=== PATIENT | female | born 1945 | race Caucasian/White ===

== ENCOUNTER → 2019-10-13 | Outpatient (CLI) | payer BC, OTHER ==
--- NOTE | 2019-10-14 10:25 | MRI ---
EXAM DESCRIPTION: Lumbar Spine w/o Contrast : Magnetic Resonance Imaging. CLINICAL HISTORY: INTERVERTEBRAL DISC DISORDERS RADICULOPATHY COMPARISON: MRI scan of the thoracic spine without contrast on the same visit. TECHNIQUE: Multiplanar, multiple standard sequences, non contrast MRI, lumbar spine. FINDINGS: L5-S1: The disc is well visualized on axial T2 series 501, image 3. Disc is desiccated with disc space maintained. Posterior midline bulge 4 mm. Left posterior hyperintense T2 weighted annular fissure abutting the foramen. Posterior flavum ligament thickening. Bilaterally shortened pedicles. AP canal diameter 9 mm. Mild right foraminal narrowing and mild to moderate left foraminal narrowing. L4-L5: Disc desiccation with disc space maintained. Tiny posterior broad-based bulge. Minimal hypertrophic facet arthrosis and posterior ligament thickening as well as narrowed transverse diameter of the bony canal and shortened pedicles. AP canal diameter 9 mm. Mild to moderate left foraminal narrowing and moderate right foraminal narrowing. L3-L4: Disc space maintained with normal signal in the disc. Minimal anterior bulging. Bilaterally shortened pedicles and bilateral narrowed transverse diameter of the canal. Hypertrophic bilateral facet arthrosis with posterior ligament thickening. AP canal diameter 10 mm. Inhomogeneous marrow signal with circumscribed hyperintense T1 and T2 hemangioma in the right L3 lamina. L2-L3: Disc normal signal with disc space preserved. Tiny posterior midline bulge. Bilateral hypertrophic facet arthrosis and thickened ligaments. Narrowing of the transverse bony canal diameter and shortened pedicles. AP canal diameter 12 mm. Bilateral foramina are patent. Posterior circumscribed hyperintense T1 and T2 hemangioma is in the midline/right L2 vertebral body. Second lesion in the posterior left vertebral body/left pedicle is more well-defined, hyperintense on T2 and inversion recovery, and mixed isointense and hypointense on T1. L1-2: Disc normal signal with disc space preserved. Minimal thickening of the posterior ligaments. Mild canal narrowing. Bilateral foramina are patent. T12-L1: Disc desiccation with anterior right endplate ridging and disc bulge. Anterior right moderate endplate reactive changes. Minimal facet arthrosis and ligament thickening. Bilateral foramina are patent. Conus terminates at this level. Broad levoscoliosis lumbar. Paravertebral soft tissues negative. Distal cord normal signal and caliber. Inhomogeneous marrow signal in the remaining vertebral bodies and the posterior elements. Vertebral bodies are not compressed at any level. IMPRESSION: 1. Multiple levels of canal narrowing or stenosis secondary to posterior element arthrosis and hypertrophy and bony morphology of the canal as well as bilaterally shortened pedicles. 2. L5-S1 disc bulge and multiple factors as described resulting in mild central canal stenosis. Left posterior annular fissure and a source of back pain. Moderate left foraminal narrowing. 3. Multifactorial mild central canal stenosis at L4-L5. Tiny posterior broad-based disc bulge. 4. Borderline mild central canal stenosis at L3-L4 is multifactorial. 5. Moderate to mild central canal narrowing at L2-L3. Typical hemangioma right L2 vertebral body. Second hemangioma in the posterior left vertebral body and left pedicle is atypical in signal, but circumscribed margin more likely with typical hemangioma. If patient at risk for metastasis or infiltrative bone lesions, consider radionuclide bone scan. Electronically signed by: Vinny Heller MD 10/14/2019 10:23 AM [facility]
--- NOTE | 2019-10-14 10:49 | MRI ---
EXAM DESCRIPTION: Thoracic Spine w/o Contrast: Magnetic Resonance Imaging. CLINICAL HISTORY: SPINAL ENTHESOPATHY THORACIC REGION COMPARISON: MR scan lumbar spine without gadolinium contrast on the same visit TECHNIQUE: Multiplanar, multiple standard sequences, non contrast MRI, thoracic spine. Axial scans from the mid T3 vertebral body through the mid T9 vertebral body.. FINDINGS: T6-T7: Desiccated disc signal and minimal disc space loss. Left posterior 3 mm disc bulge abutting the left ventral cord. Left paracentral mild canal narrowing. Minor disc bulge into the left foramen with right foramen patent. Other discs are desiccated predominantly above this level with disc space loss at T5-T6: T4-T5, T3-T4, and T2-T3. Canal and foramina are patent at these levels. Right anterior disc bulge and endplate ridging of the disc spaces from T7-T8 to T12-L1. Remaining discs with normal signal. Disc spaces are preserved. Canal and foramina are patent. No scoliosis. Facet joints are unremarkable. Conus terminates T12-L1.. Cord with normal signal, no compression. Paravertebral soft tissues are unremarkable. Inhomogeneous T1-weighted and T2-weighted marrow signal in the remaining vertebral bodies and the posterior elements. Vertebral bodies are not compressed at any level. IMPRESSION: 1. Desiccated T6-T7 disc desiccation with left posterior bulge abutting the left ventral cord with left paracentral mild canal narrowing and left foraminal narrowing. 2. Other desiccated discs above this level but no significant bulging. Canal and foramina are patent. 3. Anterior right side endplate spondylosis, disc bulging and endplate spurs T7-T8 to T12-L1. 4. Inhomogeneous T1-weighted and T2-weighted marrow signal with no significant marrow edema. No compression type vertebral body fractures, and posterior elements are intact. Electronically signed by: Vinny Heller MD 10/14/2019 10:47 AM [facility]
== END ==
LOC: MRI 14:17
PROVIDERS: ATTEND Nurse Practitioner Family
DX: M46.04 Spinal enthesopathy, thoracic region (principal); M51.15 Intervertebral disc disorders with radiculopathy, thoracolumbar region; M47.24 Other spondylosis with radiculopathy, thoracic region; M51.17 Intervertebral disc disorders with radiculopathy, lumbosacral region; D18.09 Hemangioma of other sites

== ENCOUNTER → 2020-01-06 | Outpatient (CLI) | payer OTHER | LOC: LAB.O 11:14 | PROVIDERS: ATTEND Family Medicine | DX: E11.9 Type 2 diabetes mellitus without complications (principal) ==

== ENCOUNTER → 2020-01-19 | Outpatient (CLI) | payer OTHER ==
--- NOTE | 2020-01-19 17:19 | NM ---
EXAM DESCRIPTION: Bone Scan, Whole Body: Nuclear Medicine CLINICAL HISTORY: 74 years Female PERSONAL HISTORY OF MALIGNANT NEOPLASM OF BREAST COMPARISON: MRI lumbar thoracic spines October 2019 TECHNIQUE: Patient injected with 25.4 mCi of technetium 99M MDP IV. Delayed gamma camera images tab from various planes were obtained 3 hr after injection. FINDINGS: Abnormal focal uptake/activity in the anterior right third fourth and fifth ribs and or abutting the anterior costochondral junction. These focal abnormalities are almost in the same sagittal line. Otherwise physiologic activity in the ribs bilaterally. Degenerative type activity can be seen in the joints of the bilateral ankles, bilateral knees, bilateral superior hip joints, bilateral glenohumeral joints, and bilateral AC joints. Minimal activity consistent with spondylosis in the disc spaces of the thoracic and lumbar spine. Focal activity in the superior greater trochanter of the right femur. Activity also in the left carpal metacarpal joint most likely arthrosis. No focal abnormal activity/uptake in the long bones or flat bones of the lower extremities, upper extremities, pelvic bones, or skull. Normal physiologic activity in the sinuses, bilateral kidneys, urinary bladder. IMPRESSION: Focal activity in the anterior right third fourth and fifth ribs at are abutting the costal chondral junction. Most likely related to arthrosis or trauma. Unlikely metastatic disease here, or elsewhere in the flat bones or long bones of the axial or appendicular skeleton. Multiple joints showing activity consistent with arthrosis. CRITICAL COMMUNICATION: The critical value was communicated directly by Dr. Heller via phone call, to Dr. Víctor Danielle, at approximately 1700 hours, on January 19, 2020. Electronically signed by: Vinny Heller MD 01/19/2020 5:18 PM [facility]
== END ==
LOC: NM 08:00
PROVIDERS: ATTEND Family Medicine
DX: Z85.3 Personal history of malignant neoplasm of breast (principal); M89.9 Disorder of bone, unspecified

== ENCOUNTER → 2020-06-23 | Outpatient (CLI) | payer OTHER | LOC: YCFC.O 12:12 | PROVIDERS: ATTEND Family Medicine | DX: E11.9 Type 2 diabetes mellitus without complications (principal) ==

== ENCOUNTER → 2020-10-13 | Outpatient (CLI) | payer OTHER | LOC: LAB.O 09:38 | PROVIDERS: ATTEND Family Medicine | DX: E11.9 Type 2 diabetes mellitus without complications (principal); E78.5 Hyperlipidemia, unspecified; E03.9 Hypothyroidism, unspecified; I10 Essential (primary) hypertension ==

== ENCOUNTER → 2020-10-17 | Outpatient (CLI) | payer OTHER | LOC: LAB.O 11:58 | PROVIDERS: ATTEND Family Medicine | DX: R31.29 Other microscopic hematuria (principal); D64.9 Anemia, unspecified ==

== ENCOUNTER → 2020-10-24 | Outpatient (CLI) | payer OTHER | LOC: YCFC.O 10:49 | PROVIDERS: ATTEND Family Medicine | DX: R31.29 Other microscopic hematuria (principal) ==

== ENCOUNTER → 2020-11-10 | Outpatient (CLI) | payer OTHER | LOC: YCFC.O 11:49 | PROVIDERS: ATTEND Family Medicine | DX: I10 Essential (primary) hypertension (principal) ==